=== PATIENT | female | born 1990 | race Caucasian/White ===

== ENCOUNTER → 2020-03-24 | Outpatient (CLI) | payer OTHER ==
--- NOTE | 2020-03-24 13:04 | US ---
EXAMINATION TYPE: US liver DATE OF EXAM: 03/24/2020 COMPARISON: NONE CLINICAL HISTORY: B18.2 Chronic Hep C. Chronic viral hep C EXAM MEASUREMENTS: Liver Length: 13.6 cm Gallbladder Wall: 0.2 cm CBD: 0.3 cm Right Kidney: 10.5 x 5.7 x 5.0 cm Pancreas: visualized portions wnl, partially limited by overlying midline bowel gas Liver: wnl Gallbladder: wnl Evidence for sonographic Harris's sign: no CBD: wnl Right Kidney: wnl IMPRESSION: No significant abnormality is evident
== END | disposition home or self-care (01) ==
LOC: RADUSWWP 09:26
PROVIDERS: ATTEND Internal Medicine Gastroenterology
DX: B18.2 Chronic viral hepatitis C (principal)
CPT/HCPCS: 76705

== ENCOUNTER 2021-03-04 12:18 | Emergency (ER) | payer OTHER ==
[2021-03-04 12:22] VITALS: BP 124/81; PULSE 99; RESP 20; TEMP 98.1
--- NOTE | 2021-03-04 12:34 | ED ---
General Adult HPI - General Chief complaint: ENT Stated complaint: Sore throat Time Seen by Provider: 03/04/21 12:28 Source: patient Mode of arrival: ambulatory Limitations: no limitations - History of Present Illness Initial comments: 30-year-old female presents to the emergency room for a chief complaint of sore throat. Patient states her sore throat started yesterday and today she noticed white patches. States it feels swollen and painful. Patient denies difficulty or liquids. Denies shortness of breath. Patient denies fevers. Denies any ot her symptoms such as cough.Patient has no other complaints at this time including shortness of breath, chest pain, abdominal pain, nausea or vomiting, headache, or visual changes. - Related Data Previous Rx's Medication Instructions Recorded Cephalexin [Keflex] 500 mg PO TID #9 cap 06/18/20 Acetaminophen [Tylenol] 500 mg PO Q4-6H PRN #20 tab 03/04/21 Amoxicillin 875 mg PO Q12HR #20 tablet 03/04/21 Ibuprofen [Motrin] 600 mg PO Q8HR PRN #20 tab 03/04/21 Allergies Allergy/AdvReac Type Severity Reaction Status Date / Time No Known Allergies Allergy Verified 03/04/21 12:22 Review of Systems ROS Statement: Those systems with pertinent positive or pertinent negative responses have been documented in the HPI. ROS Other: All systems not noted in ROS Statement are negative. Past Medical History Additional Past Medical History / Comment(s): hep C History of Any Multi-Drug Resistant Organisms: None Reported Past Surgical History: Section Additional Past Surgical History / Comment(s): abscess removal Past Psychological History: No Psychological Hx Reported Smoking Status: Never smoker Past Alcohol Use History: None Reported Past Drug Use History: None Reported General Exam Limitations: no limitations General appearance: alert, in no apparent distress Head exam: Present: atraumatic, normocephalic, normal inspection Eye exam: Present: normal appearance, PERRL, EOMI. Absent: scleral icterus, conjunctival injection, periorbital swelling ENT exam: Present: normal exam, mucous membranes moist. Absent: normal oropharynx (oropharynx patent, tonsillar exudates noted bilaterally. uvula midline, tonsillar pillars symmetric. No evidence of abscess.) Neck exam: Present: normal inspection, full ROM. Absent: tenderness, meningismus, lymphadenopathy Respiratory exam: Present: normal lung sounds bilaterally. Absent: respiratory distress, wheezes, rales, rhonchi, stridor Cardiovascular Exam: Present: regular rate, normal rhythm, normal heart sounds. Absent: systolic murmur, diastolic murmur, rubs, gallop, clicks GI/Abdominal exam: Present: soft, normal bowel sounds. Absent: distended, tenderness, guarding, rebound, rigid Course Vital Signs 03/04/21 12:19 Temperature 98.1 F Pulse Rate 99 Respiratory 20 Rate Blood Pressure 124/81 O2 Sat by Pulse 98 Oximetry Medical Decision Making - Medical Decision Making Patient treated empirically with antibiotic for strep. Patient declined coronavirus testing. Disposition Clinical Impression: Pharyngitis Disposition: HOME SELF-CARE Condition: Good Instructions (If sedation given, give patient instructions): Strep Throat (ED) Additional Instructions: Please take antibiotic as directed. Try gargling warm salt water. Take Motrin and Tylenol for pain. You can alternate these every 3 hours. Follow-up with your doctor in one to 2 days. Return to the emergency room for any worsening symptoms. Prescriptions: Amoxicillin 875 mg PO Q12HR #20 tablet Ibuprofen [Motrin] 600 mg PO Q8HR PRN #20 tab PRN Reason: Pain Acetaminophen [Tylenol] 500 mg PO Q4-6H PRN #20 tab PRN Reason: Pain Is patient prescribed a controlled substance at d/c from ED?: No Referrals: Dafne Bernstein MD [Primary Care Provider] - 1-2 days Time of Disposition: 12:33
== END 2021-03-04 12:40 | disposition home or self-care (01) ==
LOC: EC 12:18
DX: J02.9 Acute pharyngitis, unspecified (principal)
CPT/HCPCS: 99283

== ENCOUNTER 2021-05-25 18:06 | Emergency (ER) | payer OTHER ==
[2021-05-25 18:44] VITALS: BP 115/78; PULSE 85; RESP 18; TEMP 98.3
[2021-05-25 19:02] LABS: Appearance,Urine Cloudy (Clear); Bacteria,Urine Occasional /hpf; Bilirubin,Urine Negative (Negative); Blood,Urine Large (Negative); Color,Urine Yellow; Glucose,Urine (UA) Negative (Negative); Ketones,Urine Negative (Negative); Leukocyte Esterase,Urine Large (Negative); Mucus,Urine Occasional /hpf; Nitrite,Urine Positive (Negative); Protein,Urine 1+ (Negative); RBC,Urine 27 /hpf (0-5); Specific Gravity,Urine 1.017 (1.001-1.035); Squamous Epithelial Cell,Urine 1 /hpf (0-4); Urobilinogen,Urine <2.0 mg/dL (<2.0); WBC,Urine >182 /hpf (0-5)
[2021-05-25] MEDS ORDERED: ASPIRIN 81 MG PO STA (19:36)
[2021-05-25] MEDS ORDERED: ACETAMINOPHEN TAB 500 MG TAB PO STA (19:40)
[2021-05-25] MEDS ORDERED: KETOROLAC 15 MG/ML 1 ML VIAL IVP STA (19:40)
[2021-05-25] MEDS ORDERED: SODIUM CHLORIDE 0.9% 1,000 ML IV ONE (19:40)
[2021-05-25] MEDS ORDERED: SULFAMETHOX-TMP 800-160MG 1 EACH TAB PO STA (20:09)
--- NOTE | 2021-05-25 20:11 | ED ---
General Adult HPI - General Chief complaint: Recheck/Abnormal Lab/Rx Stated complaint: Lower Back/Abdominal Pain Time Seen by Provider: 05/25/21 19:07 Source: patient, RN notes reviewed, old records reviewed Mode of arrival: ambulatory Limitations: no limitations - History of Present Illness Initial comments: Patient is a 31-year-old female with past medical history remarkable for bipolar disorder on Depakote presents emergency Department with a primary complaint over concern for urinary tract infection. She is endorsing suprapubic abdominal pain with dysuria. She states she also is mildly concerned that she may have a renal stone and she is having some lower back pain as well. She also endorses some mild vaginal spotting and is uncertain if she is . On further questioning, patient is also concerned regarding worsening dyspnea on exertion that she has been having. She denies any history of blood clots. Endorses some chest pain when the dyspnea is worse. Denies any fevers, cough, nausea, vomiting. Denies any diarrhea or change in bowel habits. She otherwise has no acute point at this time. - Related Data Home Medications Medication Instructions Recorded Confirmed Divalproex [Depakote] 250 mg PO TID 05/25/21 05/25/21 Ibuprofen [Motrin Ib] 1,200 mg PO Q8H PRN 05/25/21 05/25/21 Previous Rx's Medication Instructions Recorded Acetaminophen Tab [Tylenol] 500 mg PO Q6H PRN 7 Days #28 tablet 05/25/21 Sulfamethox-Tmp 800-160Mg [Bactrim 1 tab PO Q12HR 5 Days #10 tab 05/25/21 DS 800-160 mg] Allergies Allergy/AdvReac Type Severity Reaction Status Date / Time No Known Allergies Allergy Verified 05/25/21 19:46 Review of Systems ROS Statement: Those systems with pertinent positive or pertinent negative responses have been documented in the HPI. Review of Systems: CONST: Denies fever EYES: Denies blurry vision ENT: Denies nasal congestion C/V: Endorses chest pain RESP: Endorses shortness of breath GI:. supraPubic abdominal pain is endorsed : Endorses dysuria SKIN: Denies rash. MSK: Denies joint pain. NEURO: Denies headache ROS Other: All systems not noted in ROS Statement are negative. Past Medical History Additional Past Medical History / Comment(s): hep C History of Any Multi-Drug Resistant Organisms: None Reported Past Surgical History: Section Additional Past Surgical History / Comment(s): abscess removal Past Psychological History: No Psychological Hx Reported Smoking Status: Never smoker Past Alcohol Use History: None Reported Past Drug Use History: None Reported General Exam - General Exam Comments Initial Comments: HEAD: Normal with no signs of head trauma. EYES: PERRLA, EOMI, conjunctiva normal, no discharge. ENT: Hearing grossly intact, normal oropharynx. RESPIRATORY: Clear breath sounds bilaterally. No wheezes, rales, or rhonchi. C/V: Regular rate and rhythm. S1 and S2 auscultated, no edema, peripheral pulses 2+ and intact throughout ABD: Abdomen soft, nondistended. She is only tender to palpation in the suprapubic region. There is no CVA tenderness on percussion. No peritoneal signs. No rebound tenderness. EXT: Normal range of motion, no obvious deformity. Patient does have some lower lumbar paraspinal muscle tenderness to palpation. SKIN: No rashes or lesions observed on exposed skin. NEURO: Alert and oriented 4. Limitations: no limitations Course Vital Signs 05/25/21 18:42 Temperature 98.3 F Pulse Rate 85 Respiratory 18 Rate Blood Pressure 115/78 O2 Sat by Pulse 98 Oximetry Medical Decision Making - Medical Decision Making Based on the patient's presentation and physical exam, like to limit possibly PT and the patient, however due to her vaginal spotting associated with suprapubic abdominal pain, I recommended that we obtain pelvic ultrasound as well throughout possibility of uterine etiology versus torsion. She was in agreement this plan. She repeatedly mentioned any worsening dyspnea that she is numbness going on for the last few days and as she is able Wells score for pulmonary embolus and, we will obtain a d-dimer in addition to cardiac workup that she is expressing chest pain. She was in agreement with this plan. Patient will be given Tylenol, aspirin, Toradol, 1 L fluid bolus. EKG will also be obtained. Urinalysis was obtained and revealed a significantly urinary tract infection. At this time, patient states she had to leave to go take care of her daughter. Labs have not been drawn, EKG was obtained, imaging was not obtained. I did discuss with her that with her symptoms, she could have a pulmonary embolism which can be deadly or other possible cardiac etiology. She expressed understanding.The patient was apprised of the potential risks of leaving the hospital AGAINST MEDICAL ADVICE, including serious complications, permanent disability, and . At the time of my interview the patient, the patient was alert, oriented, and capable. Patient signed AMA form, which was witnessed and signed by nursing staff, and placed in patient's chart. I urged the patient to return to the hospital as soon as possible to complete evaluation and treatment. Patient will be started on Bactrim and department given prescription for Bactrim outpatient. Patient therefore left the emergency department AGAINST MEDICAL ADVICE in fair condition. - Lab Data Lab Results 05/25/21 Range/Units Unknown Urine Color Yellow Urine Appearance Cloudy H (Clear) Urine pH 6.0 (5.0-8.0) Ur Specific [place] 1.017 (1.001-1.035) Urine Protein 1+ H (Negative) Urine Glucose (UA) Negative (Negative) Urine Ketones Negative (Negative) Urine Blood Large H (Negative) Urine Nitrite Positive H (Negative) Urine Bilirubin Negative (Negative) Urine Urobilinogen <2.0 (<2.0) mg/dL Ur Leukocyte Esterase Large H (Negative) Urine RBC 27 H (0-5) /hpf Urine WBC >182 H (0-5) /hpf Urine WBC Clumps Few H (None) /hpf Ur Squamous Epith Cells 1 (0-4) /hpf Urine Bacteria Occasional H (None) /hpf Urine Mucus Occasional H (None) /hpf Disposition Clinical Impression: UTI (urinary tract infection), Dyspnea, Abdominal pain, Vaginal spotting Disposition: Left Against Medical Advice Condition: Fair Instructions (If sedation given, give patient instructions): Urinary Tract Infection in Women (ED) Prescriptions: Sulfamethox-Tmp 800-160Mg [Bactrim DS 800-160 mg] 1 tab PO Q12HR 5 Days #10 tab Acetaminophen Tab [Tylenol] 500 mg PO Q6H PRN 7 Days #28 tablet PRN Reason: Pain Is patient prescribed a controlled substance at d/c from ED?: No Referrals: Dafne Bernstein MD [Primary Care Provider] - 1-2 days
== END 2021-05-25 20:16 | disposition left against medical advice (07) ==
LOC: EC 18:06
DX: N39.0 Urinary tract infection, site not specified (principal); R06.02 Shortness of breath; R07.9 Chest pain, unspecified
CPT/HCPCS: 81001; 87077; 87086; 87186; 99284